=== PATIENT | female | born 2000 | race Caucasian/White ===

== ENCOUNTER 2025-03-04 18:04 | Emergency (ER) | payer OTHER, SELFPAY ==
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
[2025-03-04 18:55] VITALS: BP 143/99; PULSE 100; RESP 18; TEMP 37.3; O2SAT 100
[2025-03-04 21:49] VITALS: BP 127/77; PULSE 76; RESP 16; TEMP 36.9; O2SAT 100
--- OUTSIDE RECORDS SUMMARY | 2025-03-04 23:49 | XMS_ITS | Clinical Summary ---
Author Organization [facility] Address [address] [place] [address] Phone Care Team Providers Care Tractor Sweeper Driver Name Role Phone Kacey Blount MD Primary Care Provider [phone] Allergies No known active allergies Medications acetaminophen (TYLENOL) 325 mg tablet Take 650 mg by mouth every 6 hours as needed. Active propranolol (INDERAL) 20 mg tablet Take 1 Tablet (20 mg) by mouth 2 times daily. 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 Family History Medical History Relation Name Comments Healthy Brother Brad 11 yo Healthy Father Healthy Maternal Aunt Heart Disease Maternal Grandfather Arrhythmia Maternal Grandmother tachyca rdia High Cholesterol Maternal Grandmother Hypertension Maternal Grandmother Healthy Maternal Uncle Hypertension Maternal Uncle Lymphoma Maternal Uncle High Cholesterol Mother Ulcers Mother Cervical Cancer Other 1 mat grtgma Kidney Cancer Other 1 mat grtgma Cancer Other 2 mat grt uncle laryngeal canc er Healthy Paternal Aunt Healthy Paternal Grandfather Diabetes Paternal Grandmother Heart Disease Paternal Grandmother High Cholesterol Paternal Grandmother Inheritable Arrhythmias Paternal Uncle WP W syndrome Other Paternal Uncle Sterling-Parkinso n-White Congenital Heart Defect Neg Hx Sudden Neg Hx Relation Name Status Comments Brother Brad Alive Father Alive Maternal Aunt Alive Maternal Grandfather (Age 51) DC Maternal Grandmother Alive Maternal Uncle Alive Mother Alive Other 1 mat grtgma Other 2 mat grt uncle (Age 63) Paternal Aunt Alive Paternal Grandfather Alive Paternal Grandmother Alive Paternal Uncle Alive Social History Tobacco Use Types Packs/Day Years Used Date Smoking Tobacco: Never Alcohol Use Standard Drinks/Week Comments Not Asked 0 (1 standard drink = 0.6 oz pur e alcohol) Comments No Sex and Gender Information Value Date Recorded Sex Assigned at Not on file Legal Sex Female 2:45 AM QUALITY CHECKER Gender Identity Not on file Sexual Orientation Not on file Last Filed Vital Signs Vital Sign Reading Time Taken Comments Blood Pressure 106/70 11/12/2015 8:57 AM CDT Pulse 64 11/11/2015 9:44 AM CDT Temperature - - Respiratory Rate 20 11/11/2015 9:44 AM CDT Oxygen Saturation - - Inhaled Oxygen Concentration - - Weight 51 kg (112 lb 7 oz) 11/12/2015 8:57 AM CD T Height 158.5 cm (5' 2.4) 11/12/2015 8:57 AM CDT Body Mass Index 20.3 11/12/2015 8:57 AM CDT Plan of Treatment Health Maintenance Due Date Last Done Comments HPV VACCINES (1 - 3-dose series) 12/07/2014 DTAP/TDAP/TD VACCINES (1 - Tdap) 12/07/2018 HEPATITIS B VACCINES (1 of 3 - 19+ 3-dose series) 11/27 CERVICAL CANCER SCREENING 12/07/2020 HPV/Cotest (21-29) 12/07/2020 PAP SMEAR 12/07/2020 INFLUENZA VACCINE (#1) 2024 Insurance [id number] OPT[employer] PPO [id number] OPTIONS PPO [id number] Care Teams Tractor Sweeper Driver Relationship Specialty Start Date End Date Kacey Blount MD [address] [place] [address] PCP - General Pediatrics 09/23/15
--- OUTSIDE RECORDS SUMMARY | 2025-03-04 23:49 | XMS_ITS | Encounter Summary ---
Author Organization [employer] Address [address] [place] [address] Care Team Providers Care Circuitry Negative Inspector Name Role Phone Kacey Blount MD Primary Care Provider [phone] Encounter Details Date Type Department Care Team (Latest Contact Info) Description 03/20/2005 Outpatient Historical [facility] Raj Camacho MD [address] [place] [id number] SLEEP DISTURBANCE NOS (Primary Dx) Social History Tobacco Use Types Packs/Day Years Used Date Smoking Tobacco: Never Assessed Comments Unknown Sex and Gender Information Value Date Recorded Sex Assigned at Not on file Legal Sex Female 2:45 AM DISTILLERY MILLER HELPER Gender Identity Not on file Sexual Orientation Not on file documented as of this encounter Plan of Treatment Not on file documented as of this encounter Visit Diagnoses Diagnosis Sleep disturbance, unspecified- Primary documented in this encounter Care Teams Circuitry Negative Inspector Relationship Specialty Start Date End Date Kacey Blount MD [address] [place] [id number] PCP - General Pediatrics 09/23/15 documented as of this encounter
--- OUTSIDE RECORDS SUMMARY | 2025-03-04 23:49 | XMS_ITS | Patient Health Record ---
Author Organization [facility] Address [address] [place] [address] Care Team Providers Care Sewing Machine Maintenance Mechanic Name Role Phone Sasha Mahan Primary Care Provider [phone] Allergies Allergen (clinical drug ingredient) Drug/Non Drug Allergy documented on EMR Reaction Allergy Type Onset Date Status Chapstick Unknown Drug Allergy Active Reason For Referral No Information Medications Medication SIG (Take, Route, Fr equency, Duration) Notes Start Date End Date Status Adderall 10 MG 1 tablet Orally Twice a day Not-Taking Zoloft 50 MG 1 tablet Orally Once a day; Duration: 30 day(s) Not-Taking Lexapro 20 MG 1 tablet Orally Once a day; Duration: 30 day(s) Not-Taking Problems Problem Type SNOMED Code ICD Code Onset Dates Problem Status W/U Status Risk Notes Problem Anxiety state (194920460) Anxiety state, unspecified (F41.1) Active confirmed Plan Of Treatment No Information Insurance Providers Payer Name Payer Address Payer Phone Subscriber Number Group Number Insured Name Patient Relationship to Insured Coverage Start Date Coverage End Date [facility] [address] [place] [address] [id number] Shari Storey Self - patient is the insured 1 Medical (General) History Medical History History ICD Code anxiety depression PTSD PCOS pre-DM Ehlors Danlos POT irregular heart beat Surgical History Surgery Date(Month/Year) ear tag removal in infancy tonsil and adenoid removal Hospitalization History Reason Date(Month/Year) age 16 admitted [facility] for suicide atte mpt and manic episode
--- OUTSIDE RECORDS SUMMARY | 2025-03-04 23:49 | XMS_ITS | Encounter Summary ---
Author Organization [facility] Address [address] [place] [address] Care Team Providers Care Box Cutter Name Role Phone Pramod Dominique NP Primary Care Provider [phone] Reason for Visit * Reason Onset Date Comments Medical Question/Miscellaneous 02/27/2025 Encounter Details Date Type Department Care Team (Late st Contact Info) Description 02/27/2025 Telephone [facility] [address] [place] [address] Pramod Dominique NP [address] [place] [id number] Medical Question/Miscellaneous Social History Tobacco Use Types Packs/Day Years Used Date Smoking Tobacco: Never Smokeless Tobacco: Never Comments:Vaping Alcohol Use Standard Drinks/Week Comments Yes 0 (1 standard drink = 0.6 oz pur e alcohol) [facility] Utilities Answer Date Recorded In the past 12 months has e electric, gas, oil, or water company threatened to shut off services in your home? Yes 12/27/2023 Humiliation, Afraid, Rape, and Kick questionnair e Answer Date Recorded Within the last year, have y ou been afraid of your partner or ex-partner? No 01/16/2024 Within the last year, have y ou been humiliated or emotionally abused in other ways by your partner or ex-partner? No Within the last year, have y ou been kicked, hit, slapped, or otherwise physically hurt by your partner or ex-partner? No 01/16/2024 Within the last year, have y ou been raped or forced to have any kind of sexual activity by your partner or ex-partner? No 01/16/2024 Social Connection and Isolation Panel Answer Date Recorded In a typical week, how many times do you talk on the phone with family, friends, or neighbors? Twice a week 12/27/2023 How often do you get together with friends or re latives? Never 12/27/2023 How often do you attend muslim or bahai serv ices? Never 12/27/2023 Do you belong to any clubs o r organizations such as muslim groups, unions, fraternal or athletic groups, or school groups? No 12/27/2023 How often do you attend meet ings of the clubs or organizations you belong to? Never 12/27/2023 Are you , , di vorced, , never , or living with a partner? Never 12/27/2023 AUDIT-C Answer Date Recorded Q1: How often do you have a drink containing alc ohol? Monthly or less 12/24/2024 Q2: How many drinks containi ng alcohol do you have on a typical day when you are drinking? 1 or 2 12/24/2024 Q3: How often do you have si x or more drinks on one occasion? Never 12/24/2024 Overall Financial Resource Strain (CARDIA) Answe r Date Recorded How hard is it for you to pa y for the very basics like food, housing, medical care, and heating? Somewhat hard 12/27/2023 PHQ-2 Answer Date Recorded PHQ-2 Total Score (If total score is 3 or more points, staff should administer the PHQ-9) 0 12/24/2024 [facility] [place] of Occupat ional Health - Occupational Stress Questionnaire Answer Date Recorded Do you feel stress - tense, restless, nervous, or anxious, or unable to sleep at night because your mind is troubled all the time - these days? Very much 12/27/2023 Exercise Vital Sign Answer Date Recorde d On average, how many days pe r week do you engage in moderate to strenuous exercise (like a brisk walk)? 7 days 12/27/2023 On average, how many minutes do you engage in exercise at this level? 60 min 12/27/2023 Hunger Vital Sign Answer Date Recorded Within the past 12 months, y ou worried that your food would run out before you got the money to buy more. Sometimes true Within the past 12 months, t he food you bought just didn't last and you didn't have money to get more. Sometimes true PRAPARE - Transportation Answer Date Re corded In the past 12 months, has l ack of transportation kept you from medical appointments or from getting medications? No 11/29 In the past 12 months, has l ack of transportation kept you from meetings, work, or from getting things needed for daily living? No 12/27/2023 PHQ-9 Answer Date Recorded PHQ-9 Total Score 16 01/16/2024 Housing Stability Vital Sign Answer Rolando e Recorded In the last 12 months, was t here a time when you were not able to pay the mortgage or rent on time? No 12/27/2023 In the past 12 months, how m any times have you moved where you were living? 0 12/27/2023 At any time in the past 12 m [facility], were you homeless or living in a retirement (including now)? No 12/27/2023 Personal Safety Answer Date Recorded Have you ever been in or are you currently in a harmful physical or emotional relationship or is someone making you feel afraid or unsafe? Denies 01/14/2024 Comments No Sex and Gender Information Value Date Recorded Sex Assigned at Not on file Legal Sex Female 8:09 AM LAND LEASE INFORMATION CLERK Gender Identity Not on file Sexual Orientation Not on file documented as of this encounter Miscellaneous Notes * Telephone Encounter - Kandy Kramer - 02/27/2025 9:13 AM CDT Lvm for patient, no availability. We can add her to the list to call once pramod's schedule is open or she can be seen at the residency clinic. * Telephone Encounter - Angelic Hernández - 02/27/2025 8:54 AM CDT Medical Question/Miscellaneous Caller???s Concern: patient can't make it in today due to severe depression. She wanted to reschedule but the only available were the residents and patient said last time she saw them they were not able to prescribe her anything as they aren't her primary Please advise patient Does message need to be routed? Yes-Action Needed documented in this encounter Plan of Treatment Not on file documented as of this encounter Visit Diagnoses Not on filedocumented in this encounter Care Teams Box Cutter Relationship Specialty Start Date End Date Pramod Dominique NP PCP - General Family Medicine 12/27/23 documented as of this encounter
--- OUTSIDE RECORDS SUMMARY | 2025-03-04 23:49 | XMS_ITS | Clinical Summary ---
Author Organization [facility] [address] Address [address] [place] [address] Phone Care Team Providers Care Incinerator Operator Name Role Phone Unavailable Primary Care Provider Unavailabl e Allergies No known active allergies Medications ACETAMINOPHEN WITH CODEINE (ACETAMINOPHEN-C ODEINE) 120-12 mg/5 mL Oral Elix Take 15 mL by mouth every 6 hours as needed for Pain. 120 ml 0 01/15/2008 Active Active Problems No known active problems Family History Medical History Relation Name Comments Healthy Brother Healthy Father Heart Disease Maternal Grandfather Healthy Maternal Grandmother Healthy Mother Healthy Paternal Grandfather Healthy Paternal Grandmother Relation Name Status Comments Brother Alive Father Alive Maternal Grandfather Maternal Grandmother Alive Mother Alive Paternal Grandfather Alive Paternal Grandmother Alive Social History Tobacco Use Types Packs/Day Years Used Date Smoking Tobacco: Never Assessed Comments Unknown Sex and Gender Information Value Date Recorded Sex Assigned at Not on file Legal Sex Female 5:41 AM CARDIOTHORACIC ICU RN Gender Identity Not on file Sexual Orientation Not on file Last Filed Vital Signs Vital Sign Reading Time Taken Comments Blood Pressure - - Pulse 78 01/15/2008 9:54 AM CDT Temperature 37.1 C (98.7 F) 01/15/2008 9:54 AM CDT Respiratory Rate - - Oxygen Saturation 100% 01/15/2008 9:54 AM CDT Inhaled Oxygen Concentration - - Weight 24.5 kg (54 lb) 01/15/2008 9:54 AM CDT Height - - Body Mass Index - - Plan of Treatment Health Maintenance Due Date Last Done Comments HPV VACCINES (1 - 3-dose series) 12/07/2014 DTAP/TDAP/TD VACCINES (1 - Tdap) 12/07/2018 HEPATITIS B VACCINES (1 of 3 - 19+ 3-dose series) 11/27 CERVICAL CANCER SCREENING 12/07/2020 HPV/Cotest (21-29) 12/07/2020 PAP SMEAR 12/07/2020 INFLUENZA VACCINE (#1) 2024 Insurance [employer]
--- OUTSIDE RECORDS SUMMARY | 2025-03-04 23:49 | XMS_ITS | Encounter Summary ---
Author Organization Address [address] [place] [address] Care Team Providers Care School Occupational Therapist Name Role Phone Kacey Blount MD Primary Care Provider [phone] Encounter Details Date Type Department Care Team (Late st Contact Info) Description 03/20/2005 Outpatient Historical [facility] [address] [id number] Uriel Mac Social History Tobacco Use Types Packs/Day Years Used Date Smoking Tobacco: Never Assessed Comments Unknown Sex and Gender Information Value Date Recorded Sex Assigned at Not on file Legal Sex Female 2:45 AM SCIENTIFIC GLASS BLOWER Gender Identity Not on file Sexual Orientation Not on file documented as of this encounter Plan of Treatment Not on file documented as of this encounter Visit Diagnoses Not on filedocumented in this encounter Care Teams School Occupational Therapist Relationship Specialty Start Date End Date Kacey Blount MD [address] [place] [address] PCP - General Pediatrics 09/23/15 documented as of this encounter
--- OUTSIDE RECORDS SUMMARY | 2025-03-04 23:49 | XMS_ITS | Patient Health Record ---
Author Organization [facility] [employer] [facility] Address [address] [place] [address] Care Team Providers Care Medical Esthetician Name Role Phone Lexy Olsen Unavailable [phone] Reason For Referral No Information Medications Medication SIG (Take, Route, Frequency, Duration) Notes Start Date End Date Status Doxycycline Hyclate 100 MG Tablet Oral 09/08/2018 Active Amoxicillin 500 MG Capsule Oral 09/08/2018 Active Sertraline HCl 100 MG Tablet Oral 09/08/2018 Active HYDROcodone-Acetamino phen 5-325 MG Tablet Oral 09/08/2018 Active Cephalexin 500 MG Capsule Oral 09/08/2018 Active Zoloft 50 MG Tablet Oral 09/08/2018 Active Lo Loestrin Fe 1 mg-10 mcg(24) /10 mcg (2) Tablet Oral *Pick strength-form from [employer] for eRX* 09/08/2018 Active Immunizations Vaccine Route Administration Date Status Comme nts Influenza virus vaccine, quadrivalent (IIV4), split virus, 0.25 mL dosage Unknown 02/27/2018 Administered Social History Social History Additional Details Category Social Info Options Details Migrated Social History Migrated Social History Alcohol Intake: Occasional 07/07/2018,Tobacco Years: Unknown if ever smoked 07/07/2018 Plan Of Treatment No Information Insurance Providers Payer Name Payer Address Payer Phone Subscriber Number Group Number Insured Name Patient Relationship to Insured Coverage Start Date Coverage End Date [facility] [address] [place] [address] [id number] RIVERA GOLD Self - patient is the insured
--- OUTSIDE RECORDS SUMMARY | 2025-03-04 23:49 | XMS_ITS | Clinical Summary ---
Author Organization [facility] Address [address] [place] [address] Care Team Providers Care Greaser Helper Name Role Phone Unavailable Primary Care Provider Unavailabl e Source Comments [facility],non-owned Affiliates and Associated Physician Practices is amultiple site organization consisting of ambulatory clinics and hospital sitesin [place], [place], [place]. This disclosure is being madepursuant to the Care Everywhere program and may not contain all information available regarding this patient. Last updated 18.[facility] Allergies Active Allergy Reactions Criticality Noted Date Comments Carmex Rash Medium 03/11/2018 Medications * Be aware that medications may not be up to date on this document. Alwaysverify current medications with the patient. LO LOESTRIN FE tablet TK 1 T PO QD 3 10/04/2018 Active Family History Medical History Relation Name Comments Diabetes - Type 2 Paternal Grandmother Relation Name Status Comments Paternal Grandmother Social History Tobacco Use Types Packs/Day Years Used Date Smoking Tobacco: Never Smokeless Tobacco: Never Tobacco Cessation:Counseling Given: Yes Comments:patient vapes occasionally Comments No Sex and Gender Information Value Date Recorded Sex Assigned at Not on file Legal Sex Female 1:12 PM [employer] INTER[employer] Gender Identity Not on file Sexual Orientation Not on file Last Filed Vital Signs Vital Sign Reading Time Taken Comments Blood Pressure 108/64 07/18/2020 6:54 PM [employer] INTER[employer] Pulse 82 07/18/2020 6:54 PM [employer] Temperature 36.7 C (98 F) 07/18/2020 6:54 PM [employer] Respiratory Rate 16 07/18/2020 6:54 PM [employer] Oxygen Saturation 98% 07/18/2020 6:54 PM [employer] Inhaled Oxygen Concentration - - Weight 49 kg (108 lb) 07/18/2020 6:54 PM [employer] Height 157.5 cm (5' 2) 07/18/2020 6:54 PM [employer] Body Mass Index 19.75 07/18/2020 6:54 PM [employer] Plan of Treatment Health Maintenance Due Date Last Done Comments HIV SCREENING 12/07/2014 HPV VACCINE (1 - 3-dose series) 12/07/2014 CHLAMYDIA/GONORRHEA SCREENING 2015 HEPATITIS C SCREENING 12/03/2017 DTAP/TDAP/TD VACCINES (1 - Tdap) 12/07/2018 HEPATITIS B VACCINE (1 of 3 - 19+ 3-dose series) 12/07/2018 DEPRESSION SCREENING 05/30/2024 COVID-19 VACCINE (1 - 2023-2 5 season) 2025 INFLUENZA VACCINE (#1) 2025 9, 04/07/2008, 03/01/2005 ZOSTER VACCINE (1 of 2) 12/07/2049 HIB VACCINE Aged Out No longer eligi ble based on patient's age to complete this topic MENINGOCOCCAL (Group B) VACCINE SHARED DECISION-MAKING Aged Out No longer eligible based on patient's age to complete this topic MENINGOCOCCAL GROUPS A/C/Y/W VACCINE Aged Out No longer eligible b ased on patient's age to complete this topic PNEUMOCOCCAL VACCINE Aged Out No long er eligible based on patient's age to complete this topic Insurance [facility]
--- OUTSIDE RECORDS SUMMARY | 2025-03-04 23:49 | XMS_ITS | Clinical Summary ---
Author Organization [facility] Address [address] [place] [address] Phone Care Team Providers Care Food Operations Manager Name Role Phone Unavailable Primary Care Provider Unavailabl e Allergies Active Allergy Reactions Criticality Noted Date Comments Chapstick Swelling High 06/10/2018 Latex Hives 04/07/2023 Medications LO LOESTRIN FE 1 MG-10 MCG / 10 MCG Tablet Take 1 Tab by mouth daily. 3 8 Active acyclovir (ZOVIRAX) 400 MG Tablet TK 1 T PO BID 0 Active Probiotic Product (FLORAJEN3 PO) Take by mouth. Active ondansetron (ZOFRAN-ODT) 4 MG TABLET DISPERSIBLE Take 1 Tablet by mouth every 8 hours as needed for Nausea - 1st line. 10 Tablet 3 Active Additional Information Patient not taking.Reported on 04/07/2023 Active Problems Problem Noted Date Diagnosed Date Attention deficit hyperactiv ity disorder (ADHD), combined type 02/02/2018 Sena-Danlos disease 02/02/2018 Acute pain of left shoulder 02/02/2018 Epistaxis 02/02/2018 Chronic nonintractable headache 02/02/2018 Social anxiety disorder 11/19/2015 Resolved Problems Problem Noted Date Diagnosed Date Resolved Date Adjustment disorder with mix ed anxiety and depressed mood 09/22/2015 11/19/2015 Immunizations Immunization Administration Dates Next Due DTAP VACCINE, 5 PERTUSSIS AN TIGENS, VACCINE IM 02/25/2004,03/15/2001,06/14/2000,04/11,02/09/2000 HEP A/HEP B Combined Vaccine 02/08/2012 Hepatitis B Vaccine, Pediatric/adolescent 06/14/2000,02/09/2000,1999 Hib (HbOC) 2000, 1,04/11/2000,02/08 Human Papillomavirus (HPV) 9 -valent Vaccine 11/15/2017 Human Papillomavirus Vaccine (HPV), quadrivalent 01/26/2011 Inactivated Polio Vaccine 02/25/2004,,04/11/2000,02/08 Influenza Vaccine 04/17/2009,04/07/2008,03/01/20 05 Influenza Vaccine greater than 3 yrs 04/17/2009, 04/07/2008,03/01/2005 MMR Vaccine 02/25/2004,2000 MMR/Varicella Combined Vaccine 02/12/2014,2011,2000 Meningococcal Polysaccharide Vaccine (MPSV4) 01/26/2011 Meningococcal Vaccine 06/21/2016 TDAP Vaccine 01/26/2011,01/26/2010 Family History Medical History Relation Name Comments No Known Problems Brother Brad No Known Problems Father Katharine Allergies Mother Jessy Depression Mother Jessy Relation Name Status Comments Brother Brad Alive Father Katharine Alive Mother Jessy Alive Social History Tobacco Use Types Packs/Day Years Used Date Smoking Tobacco: Never Smokeless Tobacco: Never Tobacco Cessation:Counseling Given: No Alcohol Use Standard Drinks/Week Comments No 0 (1 standard drink = 0.6 oz pur e alcohol) occassional PHQ-2 Answer Date Recorded Total Score - Questions 1-9 0 03/30 Sexually Active Control Partners Comments Yes Oral Contraceptive Male Comments Unknown Sex and Gender Information Value Date Recorded Sex Assigned at Not on file Legal Sex Female 8:06 PM CDT Gender Identity Not on file Sexual Orientation Not on file Last Filed Vital Signs Vital Sign Reading Time Taken Comments Blood Pressure 118/76 04/11/2023 10:17 AM MILITARY NURSE Pulse 72 04/11/2023 10:17 AM MILITARY NURSE Temperature 36.7 C (98 F) 04/11/2023 10:17 AM MILITARY NURSE Respiratory Rate 16 04/11/2023 10:1 7 AM MILITARY NURSE Oxygen Saturation 100% 03/30/2023 5: 24 PM CDT Inhaled Oxygen Concentration - - Weight 46.7 kg (102 lb 14.4 oz) 023 10:17 AM MILITARY NURSE Height 160 cm (5' 3) 04/11/2023 10:17 AM MILITARY NURSE Body Mass Index 18.23 04/11/2023 10:17 AM MILITARY NURSE Plan of Treatment Health Maintenance Due Date Last Done Comments Hepatitis C Virus (HCV) Screening 1999 Pap Smear 12/07/2020 DTaP/Tdap/Td Immunization (8 - Td or Tdap) 01/26/2021 01/26/2011, 01/26/2010, 02/25/2004, Additional history exists Influenza Immunization (#1) 01/28/202503/30, 04/17/2009, 04/07/2008, Additional history exists SARS-COV-2 Immunization ( season) 2025 Respiratory Syncytial Virus (RSV) Immunization (Adult) (1 - 1-dose 75+ series) 12/07/2074 Hepatitis B Immunization Completed 012, 06/14/2000, 02/09/2000, Additional history exists Meningococcal Immunization (ACWY) Completed 06/21/2016, 01/26/2011 Human Papillomavirus (HPV) Immunization Completed 11/15/2017, 01/26/2011 Pneumococcal Immunization Combined Aged Out No longer eligible based on patient's age to complete this topic Rotavirus Immunization Aged Out No lo nger eligible based on patient's age to complete this topic Goals Goal Patient Goal Type Associated Problems Recent Progress Patient-Stated? Author Patient to report improved time management skills and impulse control Behavioral Health No change(2019 2:33 PM CDT) No Patience Gallo LCSW Would like to learn better ways to manage symptoms Behavioral Health No change(2019 2:33 PM CDT) Yes Patience Gallo LCSW Insurance GENERIC [place] [employer]
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
[2025-03-05 00:22] LABS: BEDSIDEPREGUCG Negative (Negative)
[2025-03-05 00:26] LABS: Hematocrit 42.0 % (37.0-47.0); Hemoglobin 14.5 g/dL (12.0-15.0); Immature Granulocyte Percent A 0.4 % (0-0.5); Lymphocytes Absolute Auto 2.62 K/mm3 (0.9-3.2); Mean Corpuscular HGB Conc 34.5 g/dl (32-36); Mean Corpuscular Hemoglobin 31.6 pg (26-34); Mean Corpuscular Volume 91.5 fl (80-100); Nucleated Red Blood Cells Absolute Auto 0.000 K/mm3 (0.0-0.012); Nucleated Red Blood Cells Perc 0.0 % (0.0-0.2); Platelet Count Result 350 k/mm3 (150-375); Red Blood Count 4.59 M/mm3 (4.2-5.4); White Blood Count 8.1 K/mm3 (4.5-10.0)
[2025-03-05 00:43] LABS: Alanine Aminotransferase 20 U/L (6-35); Albumin Level 4.9 g/dL (3.5-5.1); Alkaline Phosphatase 66 U/L (38-126); Anion Gap 12 mmol/L (4-12); Aspartate Amino Transferase 33 U/L (14-36); Bilirubin,Total 1.0 mg/dL (0.2-1.3); Blood Urea Nitrogen 6 mg/dL (7-17); Calcium 9.2 mg/dL (8.4-10.2); Carbon Dioxide 25 mmol/L (22-30); Chloride 100 mmol/L (98-107); Estimated CRCL calculation 75 ml/min; Estimated Glomerular Filt Rate > 60; Glucose 106 mg/dL (65-110); Potassium 3.1 mmol/L (3.4-5.0); Sodium 137 mmol/L (137-145); Total Protein 8.7 g/dL (6.3-8.2)
[2025-03-05] MEDS: POTASSIUM CHLORIDE 20 MEQ ER TABLET 40 MEQ PO (01:21)
[2025-03-05] MEDS: diazePAM INJ (*CRX) 10 MG/2 ML SYRINGE 5 MG IM (01:21)
[2025-03-05 01:46] LABS: Magnesium 2.0 mg/dL (1.6-2.3)
== END 2025-03-05 03:33 | disposition home or self-care (01) ==
PROVIDERS: Emergency Provider Physician Assistant
DX: S43.402A Unspecified sprain of left shoulder joint, initial encounter (principal); S16.1XXA Strain of muscle, fascia and tendon at neck level, initial encounter; R10.30 Lower abdominal pain, unspecified; V49.40XA Driver injured in collision with unspecified motor vehicles in traffic accident, initial encounter
CPT/HCPCS: 36415; 70450; 71260; 72125; 73030; 73562; 74177; 80053; 81025; 83735; 85025; 96372; 99284; A4565; A9270; J3360; Q9967